=== PATIENT | female | born 2005 | race Caucasian/White ===

== ENCOUNTER 2024-08-27 12:09 | Emergency (ER) | payer BC, SELFPAY ==
[2024-08-27 12:22] VITALS: BP 117/71; PULSE 115; RESP 18; TEMP 37.7; O2SAT 99; BMI 18.9
--- NOTE | 2024-08-27 13:00 | CRLHL7_ITS ---
For Patients: As a result of the Cures Act, medical imaging exams and procedure reports are released immediately into your electronic medical record. You may view this report before your referring provider. If you have questions, please contact your health care provider. INDICATION: Cough. Chest tightness/pain, not otherwise specified. COMPARISON: None available. TECHNIQUE: 2 views. FINDINGS: Medical Devices: None. Lung Volumes: Adequate inspiration. No significant atelectasis. Lungs: Clear lungs. Pleura and Pleural spaces: No significant pleural effusion. No pneumothorax. Mediastinum: Normal cardiomediastinal silhouette. Bony Thorax and Soft Tissues: No significant incidental findings. IMPRESSION: Normal study. Dictated by Carlos Alberto Shah MD @ 08/27/2024 1:33:00 PM (Electronically Signed)
--- NOTE | 2024-08-27 13:01 | ED_ITS ---
HPI - General Adult General Chief complaint: Cough Stated complaint: Chest pain, coughing phlegm Time Seen by Provider: 08/27/24 12:11 History of Present Illness HPI narrative: This 18-year-old female comes in with her mother because of some chest tightness over the past day or 2. This occurs when taking a deep breath. While at rest she does not have any discomfort. She states that she has been coughing occasionally and it is productive of phlegm. She does report some nasal conge stion and felt feverish last evening. She did measure a temperature of 100.8? at home and did take ibuprofen prior to arrival. She arrives with tachycardia. She does report some anxiety about seeing doctors but states that she measured her heart rate at 110 at home while at rest. She arrives here with a temperature of 99.8? F. Related Data Home Medications ?Medication ?Instructions ?Recorded ?Confirmed albuterol sulfate PO 08/27/24 08/27/24 albuterol sulfate 90 mcg/actuation 1 inh inhalation Q4-6H PRN 08/27/24 08/27/24 breath activated powder inhaler ibuprofen PO 08/27/24 08/27/24 Previous Rx's ?Medication ?Instructions ?Recorded azithromycin 250 mg tablet 250 mg PO DAILY #6 tabs 08/27/24 (Zithromax Z-Armand) methylprednisolone 4 mg tablets in See Rx Instructions PO .COMPLEX 08/27/24 a dose pack (Medrol (Armand)) #21 ea Allergies Allergy/AdvReac Type Severity Reaction Status Date / Time No Known Drug Allergies Allergy Verified 08/27/24 12:29 Review of Systems Status of ROS: Reports: 10 or more systems reviewed and unremarkable except as noted in History and below Narrative: Constitutional: No fevers, no weight gain or loss. Eyes: No discharge. No vision changes. HENT: No congestion, no sore throat, no ear pain. Cardiovascular: No palpitations. Respiratory: No shortness of breath, no wheezes. Occasional productive cough. Gastrointestinal: No abdominal pain, no vomiting, no diarrhea. Genitourinary: No dysuria, no hematuria. Musculoskeletal: Normal range of motion. Skin: No rashes, no pruritis. Neurological: No dizziness, weakness, sensory change, speech change. Endo/Heme/Allergies: No bruising or bleeding. No polydipsia. Pysch: no suicidality, no anxiety, no insomnia. All other systems reviewed and are negative. Exam Narrative: Exam Narrative: Constitutional: Well-developed, well-nourished, no acute distress. HEENT: Normocephalic, atraumatic. Neck: Normal range of motion. Nontender. Supple. Heart: Regular. No murmurs. Normal rate. Intact distal pulses. Lungs: Clear to auscultation. No chest discomfort. No wheezes, rhonchi, or rales. Abdomen: Normal bowel sounds. Nontender. No rebound tenderness. Genitalia: Deferred. Back: No midline tenderness. Normal range of motion. Extremities: Normal range of motion. No injury. Skin: Intact. No rash. Warm. No erythema or pallor. Neurologic: No altered sensation. No weakness. Alert and oriented. Psychiatric: No suicidality. No anxiety or depression. No insomnia. Nursing notes and vitals signs are reviewed. Const: Vital Signs, click to edit/add: Vital Signs - 24 hr 08/27/24 12:22 Temperature 99.8 F H Pulse Rate [Pulse Oximeter] 115 H Respiratory Rate 18 Blood Pressure [Ri t Upper Arm] 117/71 Pulse Oximetry 99 Oxygen Delivery Me thod Room Air Course Vital Signs Vital signs: Initial Vital Signs Temperature 99.8 F H 08/27/24 12:22 Temperature Source Temporal Artery Scan 08/27/24 12:22 Pulse Rate 115 H 08/27/24 12:22 Respiratory Rate 18 08/27/24 12:22 Blood Pressure 117/71 08/27/24 12:22 Blood Pressure Mean 86 08/27/24 12:22 Blood Pressure Position Sitting 08/27/24 12:22 Pulse Oximetry 99 08/27/24 12:22 Oxygen Delivery Method Room Air 08/27/24 12:22 Vital Signs Temperature 99.8 F H 08/27/24 12:22 Pulse Rate 115 H 08/27/24 12:22 Respiratory Rate 18 08/27/24 12:22 Blood Pressure 117/71 08/27/24 12:22 Pulse Oximetry 99 08/27/24 12:22 Oxygen Delivery Method Room Air 08/27/24 12:22 Temperature 99.8 F H 08/27/24 12:22 Pulse Rate 115 H 08/27/24 12:22 Respiratory Rate 18 08/27/24 12:22 Blood Pressure 117/71 08/27/24 12:22 Pulse Oximetry 99 08/27/24 12:22 Oxygen Delivery Method Room Air 08/27/24 12:22 Medical Decision Making [facility] Narrative Medical decision making narrative: This 18-year-old female comes in with cough on and off over the past month but worsening symptoms in the last day or so. She did measure a fever but arrives here with normal temperature. She also has some tachycardia. She does not feel short of breath and is maintaining oximetry at 99% on room air. Nasal pharyngeal swab is negative for viruses tested. Additionally her chest x-ray shows no acute findings. I did also use bedside ultrasound seeing normal results. This patient has had upper respiratory symptoms over the past month or so but worsening recently. For this reason I do have some suspicion that this could be a bacterial lower respiratory tract infection. The patient received a prescription for Zithromax and Medrol Dosepak. Lab Data Labs: Lab Results 08/27/24 Range/Units 12:29 SARS-CoV-2 (PCR) Negative SARS-CoV-2 (Negative) Influenza Type A (PCR) Negative PCR FLU A (Negative) Influenza Type B (PCR) Negative PCR FLU B (Negative) RSV (PCR) Negative PCR RSV (Negative) Discharge Plan Discharge Clinical Impression: Acute lower respiratory infection Patient Disposition: Home, Self-Care Condition: Stable Additional Instructions: Take medication as prescribed. Follow up with MD return if worsening. Prescriptions: New azithromycin [Zithromax Z-Armand] 250 mg tablet 250 mg PO DAILY Qty: 6 0RF methylprednisolone [Medrol (Armand)] 4 mg tablets,dose pack See Rx Instructions .ROUTE .COMPLEX Qty: 21 0RF Rx Instructions: orally per package directions No Action ibuprofen PO albuterol sulfate PO albuterol sulfate 90 mcg/actuation aerosol powdr breath activated 1 inh inhalation Q4-6H PRN Follow Up/Referrals: Provider,Not a Local [Primary Care Provider] - Stand Alone Forms: MyHealth Info Instructions Procedures Ultrasound Cardiac exam #1: Anatomical areas examined: parasternal long and parasternal short Indications: chest pain Exam type: limited transthoracic echocardiogram Impression: negative exam
[2024-08-27 13:14] LABS: PCR FLU A Negative PCR FLU A (Negative); PCR FLU B Negative PCR FLU B (Negative); PCR RSV Negative PCR RSV (Negative); SARS PCR* Negative SARS-CoV-2 (Negative)
== END 2024-08-27 14:00 | disposition home or self-care (01) ==
PROVIDERS: Emergency Provider Emergency Medicine Emergency Medical Services
DX: J06.9 Acute upper respiratory infection, unspecified (principal)
CPT/HCPCS: 71046; 76604; 76705; 87631; 93308; 99282; 99283; 99284